=== PATIENT | male | born 1995 | race Caucasian/White ===

== ENCOUNTER 2017-01-16 18:59 | Emergency (ER) | payer OTHER ==
[2017-01-16] MEDS ORDERED: Proparacaine 0.5% Ophth Soln 15 ML Bottle EYEBOTH ONE (19:20)
--- NOTE | 2017-01-16 19:36 | EDM.PDOC ---
ED HPI GENERAL MEDICAL PROBLEM - General Chief Complaint: Eye Problems Stated Complaint: METAL IN RIGHT EYE Time Seen by Provider: 01/16/17 19:06 Source of Information: Reports: Patient History Limitations: Reports: No Limitations - History of Present Illness INITIAL COMMENTS - FREE TEXT/NARRATIVE: About 1:30pm today, the patient was helping someone weld. He was holding the object that was being welded. He did not wear a mask. He did close his eyes for some of it. After that he developed pain in both eyes with the right being worse then the left. He wears no glasses or contacts. He says he has some blurred vision in his right eye. Onset: Gradual Duration: Hour(s): Location: Reports: Other (Both eyes) Quality: Reports: Ache Severity: Moderate Improves with: Reports: None Worsens with: Reports: None Context: Reports: Activity (Helping someone weld) Associated Symptoms: Reports: No Other Symptoms Treatments SHIFT STACKER: Reports: Other (see below) Other Treatments SHIFT STACKER: eye drops and water flush to eyes Right Eye Pain Score (Numeric/FACES): 4 - Related Data Allergies Allergy/AdvReac Type Severity Reaction Status Date / Time No Known Allergies Allergy Verified 01/16/17 19:13 Home Meds: Home Meds Ciprofloxacin [IJD: Ciloxan 0.3% Ophth Soln] 1 drop OP .EVERY 4 HOURS #5 ml [Rx] Past Medical History - Past Health History Medical/Surgical History: Denies Medical/Surgical History Social & Family History - Tobacco Use Smoking Status *Q: Current Every Day Smoker Years of Tobacco use: 5 Packs/Tins Daily: 1 - Caffeine Use Caffeine Use: Reports: Soda - Recreational Drug Use Recreational Drug Use: No ED ROS GENERAL - Review of Systems Review Of Systems: See Below Constitutional: Reports: No Symptoms HEENT: Reports: Eye Pain Respiratory: Reports: No Symptoms Cardiovascular: Reports: No Symptoms Endocrine: Reports: No Symptoms GI/Abdominal: Reports: No Symptoms : Reports: No Symptoms ED EXAM GENERAL W FULL EYE - Physical Exam Exam: See Below Exam Limited By: No Limitations General Appearance: Alert, No Apparent Distress Eye Exam: Bilateral Eye: Conjunctival Injection, EOMI, PERRL Visual Acuity (R) 20/: 25 Visual Acuity (L) 20/: 20 With Correction: No Eyelids: Bilateral: Normal Appearance, Lid Everted for Exam Conjunctiva & Sclera: Bilateral: Injected Cornea Exam: Bilateral: Examined with Flourescein, Other (Career Development Counselor's burn) Extraocular Movements: Bilateral: Intact Pupillary Size: Bilateral: 4 mm Pupillary Reaction: Bilateral: Brisk Anterior Chamber: Bilateral: Normal Appearance Ears: Normal External Exam Nose: Normal Inspection Head: Atraumatic, Normocephalic, Other (Mild erythema) Neck: Normal Inspection Course - Vital Signs Last Recorded V/S: Last Vital Signs Temp 98.5 F 01/16/17 19:11 Pulse 91 01/16/17 19:11 Resp 20 01/16/17 19:11 BP 163/94 H 01/16/17 19:11 Pulse Ox 99 01/16/17 19:11 - Orders/Labs/Meds Meds: Medications Discontinued Medications Generic Name Dose Route Start Last Admin Trade Name Freq PRN Reason Stop Dose Admin Proparacaine HCl 1 ml 01/16/17 19:20 01/16/17 19:23 Proparacaine 0.5% Ophth Soln EYEBOTH 01/16/17 19:21 2 drop ONETIME ONE Administration - Re-Assessments/Exams Free Text/Narrative Re-Assessment/Exam: 01/16/17 19:34 The patient has pipefitter welder's burn. I will get him on some cipro drops. Departure - Departure Time of Disposition: 19:35 Disposition: Home, Self-Care 01 Condition: Good Clinical Impression: Welders' keratitis of both eyes - Discharge Information Prescriptions: Ciprofloxacin [IJD: Ciloxan 0.3% Ophth Soln] 1 drop OP .EVERY 4 HOURS #5 ml Referrals: PCP,None [Primary Care Provider] - Additional Instructions: Use the cipro drops 1 drop in each eye every 4 hours while awake for 1 week. Put cool wash clothes on your eyes tonight to help with the pain and take tylenol or motrin for the pain. Follow up with an look out tower fire watcher here in town if you are not feeling better in a few days. Please return if you are worse.
== END 2017-01-16 19:50 | disposition home or self-care (01) ==
LOC: JD.ED 18:59
DX: H16.133 Photokeratitis, bilateral (principal); F17.210 Nicotine dependence, cigarettes, uncomplicated; Z79.899 Other long term (current) drug therapy
CPT/HCPCS: 99283

== ENCOUNTER 2018-12-24 15:09 | Emergency (ER) | payer SELFPAY ==
--- NOTE | 2018-12-24 15:38 | EDM.PDOC ---
ED HPI GENERAL MEDICAL PROBLEM - General Chief Complaint: Bite:Animal, Insect Stated Complaint: ANIMAL BITE,DOG Time Seen by Provider: 12/24/18 15:14 Source of Information: Reports: Patient, RN Notes Reviewed History Limitations: Reports: No Limitations - History of Present Illness INITIAL COMMENTS - FREE TEXT/NARRATIVE: Patient is a 23-year-old male who presents to the ED for evaluation of injuries sustained from a dog bite. Patient notes that on Wednesday night he was bitten on the right hand by 2 different dogs, as he was trying to break up a fight between the 2 dogs. He is unsure about their vaccination status the thinks they 're up-to-date. Patient notes he is up-to-date on his tetanus shot. He did not seek medical attention at that time, and has been using peroxide and dressing the wounds with gauze and just. He has developed some redness and swelling to the dorsum of the hand, there are a couple different lacerations on his hand, one to the proximal thumb base at the wrist joint, on the right middle finger, and the dorsum of the right hand. Patient is able to move his hand and wiggle fingers, however it is painful to do so due to the swelling. He denies any numbness or tingling in the extremity. Patient notes he is right hand dominant. He is not taking any sort of ibuprofen and Tylenol for pain relief. Right Hand Pain Score (Numeric/FACES): 10 - Related Data Allergies Allergy/AdvReac Type Severity Reaction Status Date / Time No Known Allergies Allergy Verified 12/24/18 15:14 Home Meds: Home Meds Amoxicillin/Clavulanate K [Augmentin 875-125 MG] 1 tab PO BID #20 tablet [Rx] Past Medical History - Past Health History Medical/Surgical History: Denies Medical/Surgical History Social & Family History - Tobacco Use Smoking Status *Q: Current Every Day Smoker Years of Tobacco use: 12 Packs/Tins Daily: 1 - Caffeine Use Caffeine Use: Reports: Soda - Alcohol Use Days Per Week of Alcohol Use: 7 Number of Drinks Per Day: 6 Total Drinks Per Week: 42 - Recreational Drug Use Recreational Drug Use: No ED ROS GENERAL - Review of Systems Review Of Systems: See Below Constitutional: Denies: Fever, Chills HEENT: Reports: No Symptoms Respiratory: Reports: No Symptoms Cardiovascular: Reports: No Symptoms Endocrine: Reports: No Symptoms GI/Abdominal: Reports: No Symptoms : Reports: No Symptoms Musculoskeletal: Reports: Hand Pain (R hand) Skin: Reports: Erythema (R hand and 2+ swelling to dorsum of hand that extends into all fingers), Wound (3 wounds to R hand) ED EXAM, ANIMAL BITE - Physical Exam Exam: See Below Exam Limited By: No Limitations General Appearance: Alert, WD/WN, No Apparent Distress Respiratory/Chest: No Respiratory Distress, Lungs Clear, Normal Breath Sounds, No Accessory Muscle Use, Chest Non-Tender Cardiovascular: Normal Peripheral Pulses, Regular Rate, Rhythm, No Murmur Peripheral Pulses: 3+: Radial (L), Radial (R) Extremities: Limited Range of Motion (of R hand d/t pain and swelling of extremity.), Increased Warmth (R hand) Neurological: Alert, Oriented, Normal Cognition, No Motor/Sensory Deficits Psychiatric: Normal Affect, Normal Mood Skin Exam: Normal Color, Warm/Dry, Other (3 wounds on the right hand, 1 linear gaping, healing laceration to the proximal thumb at base of the wrist, one on the right dorsum middle finger, and another linear laceration to the dorsum of the right hand. The whole hand is red, 2+ swelling, patient is able to move his fingers however the swelling limits this ability.) Course - Vital Signs Last Recorded V/S: Last Vital Signs Temp 98.9 F 12/24/18 15:14 Pulse 103 H 12/24/18 15:14 Resp 16 12/24/18 15:14 BP 156/105 H 12/24/18 15:14 Pulse Ox 98 12/24/18 15:14 - Re-Assessments/Exams Free Text/Narrative Re-Assessment/Exam: 12/24/18 15:38 Patient presents to the ED for evaluation of injury sustained from a couple dog bites. Unfortunately due to the timing we will not be able to repair the wounds on his hands, he will have to keep these as clean and as dry as he can on his own accord, as he does not want us to clean the wounds today. His hand does look infected, increased warmth redness and swelling to the sites. Will place on Augmentin for 10 day course and have him follow up in clinic this coming week. Departure - Departure Time of Disposition: 15:39 Disposition: Home, Self-Care 01 Condition: Fair Clinical Impression: Dog bite of left hand with infection Qualifiers: Encounter type: initial encounter Qualified Code(s): S61.452A - Open bite of left hand, initial encounter - Discharge Information Prescriptions: Amoxicillin/Clavulanate K [Augmentin 875-125 MG] 1 tab PO BID #20 tablet Instructions: Animal Bite, Adult, [id number] Referrals: PCP,None [Primary Care Provider] - Forms: ED Department Discharge Additional Instructions: You have been evaluated in the ED for your dog bit injuries You have been provided with a script for Augmentin. This was electronically sent to the [place] pharmacy located in [facility]. Please take this medication as directed. (1 tab twice daily for 10 days or until gone). This antibiotic can cause diarrhea, recommend that you start a probiotic while taking this medication. You may take 500 mg Tylenol or 600 mg ibuprofen every 6 hours as needed for further pain relief. You may use hot pack/ ice packs to the affected area as tolerated in 15-20 minute intervals. You may also elevate the hand above the heart level as this will help alleviate some of the swelling. Recommend that you follow up in clinic sometime this week to make sure that the infection is getting better and for a general wound check. Please return to the ED if your symptoms change or worsen.
== END 2018-12-24 15:50 | disposition home or self-care (01) ==
LOC: JD.ED 15:09
DX: S61.451A Open bite of right hand, initial encounter (principal); F17.200 Nicotine dependence, unspecified, uncomplicated; W54.0XXA Bitten by dog, initial encounter; Y93.89 Activity, other specified
CPT/HCPCS: 99283

== ENCOUNTER 2021-01-22 23:10 | Emergency (ER) | payer OTHER ==
[2021-01-22] MEDS ORDERED: Ondansetron 4 MG/2 ML SDV ONE (23:42)
[2021-01-22] MEDS ORDERED: fentaNYL 100 MCG/2 ML SDV ONE (23:44)
--- NOTE | 2021-01-23 00:05 | EDM.PDOC ---
ED HPI GENERAL MEDICAL PROBLEM - General Chief Complaint: Lower Extremity Injury/Pain Stated Complaint: INJURED LEFT ANKLE Time Seen by Provider: 01/22/21 23:20 - History of Present Illness INITIAL COMMENTS - FREE TEXT/NARRATIVE: 25-year-old male presents the emergency room after injuring his left ankle. The patient was walking down some stairs and missed negotiated this and he fell. Patient denies any other injury other than his ankle. He has a obvious deformity here. Patient does not have any significant medical illnesses he is not taking any routine medications. He may have had a few drinks tonight. Left Ankle Pain Score (Numeric/FACES): 10 - Related Data Allergies Allergy/AdvReac Type Severity Reaction Status Date / Time No Known Allergies Allergy Verified 01/22/21 23:27 Home Meds: Home Meds Hydrocodone/Acetaminophen [HYDROcodone-Acetaminophen 5-325 MG] 1 - 2 each PO Q6H PRN #30 tab 01/23/21 [Rx] Past Medical History - Past Health History Medical/Surgical History: Denies Medical/Surgical History Social & Family History - Tobacco Use Tobacco Use Status *Q: Unknown Ever Used Tobacco - Caffeine Use Caffeine Use: Reports: Soda Review of Systems - Review of Systems Review Of Systems: See Below Constitutional: Reports: No Symptoms Eyes: Reports: No Symptoms Ears: Reports: No Symptoms Nose: Reports: No Symptoms Mouth/Throat: Reports: No Symptoms Respiratory: Reports: No Symptoms Cardiovascular: Reports: No Symptoms GI/Abdominal: Reports: No Symptoms Genitourinary: Reports: No Symptoms Musculoskeletal: Reports: Other (Left ankle injury) Skin: Reports: No Symptoms ED EXAM, GENERAL - Physical Exam Exam: See Below Exam Limited By: No Limitations General Appearance: Alert, No Apparent Distress Throat/Mouth: Normal Inspection, Normal Lips, Normal Teeth, Normal Gums, Normal Oropharynx, Normal Voice, No Airway Compromise Head: Atraumatic, Normocephalic Neck: Normal Inspection, Supple, Non-Tender, Full Range of Motion. No: Lymphadenopathy (L), Lymphadenopathy (R) Respiratory/Chest: No Respiratory Distress, Lungs Clear, Normal Breath Sounds Cardiovascular: Regular Rate, Rhythm, No Edema, No Murmur GI/Abdominal: Normal Bowel Sounds, Soft, Non-Tender, Pelvis Stable Extremities: Other (Right lower extremity is normal with palpation left has an obvious deformity at the ankle. ) ED TRAUMA EXTREMITY PROCEDURES - Joint Reduction Left Ankle Sedation: Other (None IV fentanyl) Pre-Procedure NV Status: Normal Post-Procedure NV Status: Normal Technique: Other (Using gentle traction everything was put back into more appropriate alignment in the ankle fell back into place without difficulty) Number of Attempts: 1 Post-Reduction Imaging: Completely Reduced - Splinting Left Lower Extremity Splint Site: Left lower leg Pre-Procedure NV Status: Normal Post-Procedure NV Status: Normal Splint Material: Fiberglass Splint Design: Sugar Tong, Posterior Applied & Form Fitted By: Provider Provider Post-Splint Application NV Check: NV Status Normal Complications: No Course - Vital Signs Last Recorded V/S: Last Vital Signs Temp 36.8 C 01/22/21 23:27 Pulse 117 H 01/22/21 23:27 Resp 14 01/22/21 23:27 BP 124/83 01/22/21 23:27 Pulse Ox 98 01/22/21 23:27 - Orders/Labs/Meds Orders: Active Orders 24 hr Category Date Time Status Ankle 2V Lt [CR] Stat Exams 01/22/21 23:22 Taken Ankle Min 3V Lt [CR] Stat Exams 01/22/21 23:22 Taken Durable Medical Equipment for Discharge [DME for Oth 01/23/21 00:35 Ordered Discharge] [COMM] Stat Meds: Medications Discontinued Medications Generic Name Dose Route Start Last Admin Trade Name Denisse PRN Reason Stop Dose Admin Hydrocodone Bitart/Acetaminophen 2 tab 01/23/21 00:35 Acetaminophen/Hydrocodone 325-5 Mg Tab PO 01/23/21 00:36 ONETIME ONE Fentanyl Confirm 01/22/21 23:44 01/23/21 00:40 Fentanyl 100 Mcg/2 Ml Sdv Administered 01/22/21 23:45 Not Given Dose 100 mcg .ROUTE .STK-MED ONE Fentanyl 50 mcg 01/23/21 00:12 Fentanyl 100 Mcg/2 Ml Sdv IVPUSH 01/23/21 00:13 ONETIME ONE Ondansetron HCl Confirm 01/22/21 23:42 01/23/21 00:41 Ondansetron 4 Mg/2 Ml Sdv Administered 01/22/21 23:43 Not Given Dose 4 mg .ROUTE .STK-MED ONE Ondansetron HCl 4 mg 01/23/21 00:12 Ondansetron 4 Mg/2 Ml Sdv IVPUSH 01/23/21 00:13 ONETIME ONE - Re-Assessments/Exams Free Text/Narrative Re-Assessment/Exam: 01/23/21 00:36 X-ray examination showed a ulnar fracture distal with the posterior fibulay deviated ankle dislocation. With gentle traction I was able to get this into place without procedural sedation patient tolerated this well. Repeat x-rays looked very reassuring the patient was splinted with a sugar tong splint followed by a posterior splint. Situation discussed with Dr. Deluca who was able to review the x-rays including the postreduction films and thought everything looked pretty good his recommendation was to have the patient follow-up with him in 1 week anticipating surgery after that. Patient will be placed in crutches. Departure - Departure Time of Disposition: 00:37 Disposition: Home, Self-Care 01 Clinical Impression: Dislocation of ankle, left, closed, Fracture of distal end of fibula - Discharge Information Prescriptions: Hydrocodone/Acetaminophen [HYDROcodone-Acetaminophen 5-325 MG] 1 - 2 each PO Q6H PRN #30 tab PRN Reason: Pain Referrals: PCP,None [Primary Care Provider] - Carlos Deluca MD [Physician] - Forms: ED Department Discharge Additional Instructions: Return to the emergency room with any questions problems or worsening symptoms. Follow-up with Dr. Deluca this next week. Your ankle will require surgical repair. You been placed in a splint wear this at all times. Use crutches at all times. You can try Tylenol avoid ibuprofen for the pain. For pain that that this does not work with I have given you a prescription for [place] I have sent this to the [place] pharmacy electronically 1 or 2 every 4-6 hours as needed for pain. Do not drive or return to work within 12 hours of using this medication Is much as tolerable keep your foot elevated put an ice pack over the front of your ankle with the splint in place. Return to the emergency room with any numbness or tingling in your foot. Often however this can be alleviated by loosening the Qamar wrap that hold the splint together. Sepsis Event Note (ED) - Evaluation Sepsis Screening Result: No Definite Risk - Focused Exam Vital Signs: Vital Signs Temp Pulse Resp BP Pulse Ox 01/22/21 23:27 36.8 C 117 H 14 124/83 98 - My Orders Last 24 Hours: My Active Orders 01/22/21 23:22 Ankle 2V Lt [CR] Stat Ankle Min 3V Lt [CR] Stat 01/23/21 00:35 Durable Medical Equipment for Discharge [DME for Discharge] [COMM] Stat - Assessment/Plan Last 24 Hours: My Active Orders 01/22/21 23:22 Ankle 2V Lt [CR] Stat Ankle Min 3V Lt [CR] Stat 01/23/21 00:35 Durable Medical Equipment for Discharge [DME for Discharge] [COMM] Stat
[2021-01-23] MEDS ORDERED: Ondansetron 4 MG/2 ML SDV IVPUSH ONE (00:12)
[2021-01-23] MEDS ORDERED: fentaNYL 100 MCG/2 ML SDV IVPUSH ONE (00:12)
[2021-01-23] MEDS ORDERED: Acetaminophen/HYDROcodone 325-5 MG Tab PO ONE (00:35)
--- NOTE | 2021-01-23 06:53 | CR ---
Left ankle: 4 views of the left ankle were obtained. Comparison: No prior ankle study is available. Dislocation is seen of the tibia in relation to the talus in an anterior and medial direction. Fibular fracture is noted within the distal diaphysis with displacement. No other acute bony abnormality is appreciated. Impression: 1. Distal diaphyseal fibular fracture with displacement. 2. Ankle is also dislocated. Diagnostic code #3
--- NOTE | 2021-01-23 06:56 | CR ---
Left ankle: 2 views of the left ankle were obtained. Comparison: Prior study performed on the same day (11:22 PM). Previous dislocation involving the tibiotalar joint has been reduced. Fracture within the distal diaphysis of the fibula shows evidence of better alignment than seen on prior study. Diffuse soft tissue swelling is noted. No additional bony abnormality is appreciated. Impression: 1. Previous dislocation has been reduced. 2. Displaced distal fibular fracture also shows better alignment on current study. 3. Soft tissue swelling. Diagnostic code #3
== END 2021-01-23 01:07 | disposition home or self-care (01) ==
LOC: JD.ED 23:10
DX: S82.832A Other fracture of upper and lower end of left fibula, initial encounter for closed fracture (principal); S93.05XA Dislocation of left ankle joint, initial encounter; W10.9XXA Fall (on) (from) unspecified stairs and steps, initial encounter
CPT/HCPCS: 73600; 73610; 96374; 96375; 99283; A9270; J2405; J3010